=== PATIENT | male | born 1995 | race Caucasian/White ===

== ENCOUNTER 2018-11-15 20:31 | Emergency (ER) | payer MEDICAID ==
[2018-11-15] MEDS ORDERED: Triple Antibiotic 0.94 gm Pkt TP STA (21:38)
[2018-11-15] MEDS ORDERED: Triple Antibiotic 0.94 gm Pkt TP ONE (21:39)
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
== END 2018-11-15 21:50 | disposition home or self-care (01) ==
LOC: ER 20:31
DX: S61.412A Laceration without foreign body of left hand, initial encounter (principal); F17.200 Nicotine dependence, unspecified, uncomplicated; W26.0XXA Contact with knife, initial encounter; Y93.89 Activity, other specified; Y92.89 Other specified places as the place of occurrence of the external cause; Y99.8 Other external cause status
CPT/HCPCS: 12001; J0696; J2001; Z7502; Z7610